=== PATIENT | male | born 1990 | race Hispanic/Latino ===

== ENCOUNTER 2019-01-25 18:11 | Emergency (ER) | payer BC ==
[2019-01-25] MEDS ORDERED: Sodium Chloride 0.9% 1,000 ML IV STA (18:45)
[2019-01-25 19:07] LABS: BASO # 0.1 K/uL (0.0-0.2); BASO % 0.9 % (0.0-2.0); EOS # 0.1 K/uL (0.0-0.7); EOS % 1.8 % (0.0-4.0); LYMPH # 2.2 K/uL (1.0-4.3); LYMPH % 30.2 % (20.0-40.0); MEAN CELL VOLUME 92.7 fl (80.0-94.0); MEAN CORPUSCULAR HEMOGLOBIN 31.7 pg (27.0-31.0); MEAN CORPUSCULAR HGB CONC 34.2 g/dL (33.0-37.0); MONO # 0.6 K/uL (0.0-0.8); MONO % 8.3 % (0.0-10.0); NEUT # 4.2 K/uL (1.8-7.0); NEUT % 58.8 % (50.0-75.0); NRBC % 0.2 % (0.0-0.0); RBC 5.03 Mil/uL (4.40-5.90); RED CELL DISTRIBUTION WIDTH 13.7 % (11.5-14.5); WHITE BLOOD COUNT 7.1 K/uL (4.8-10.8)
[2019-01-25] MEDS ORDERED: Morphine 4 MG/ML VIAL ONE ×2 (19:12→21:16)
[2019-01-25 19:13] LABS: ALB/GLOB RATIO 1.5 (1.0-2.1); ALBUMIN 4.5 g/dL (3.5-5.0); ALT/SGPT 50 U/L (21-72); AST/SGOT 52 U/L (17-59); BLOOD UREA NITROGEN 10 mg/dl (9-20); GFR NON-AFRICAN AMERICAN > 60
[2019-01-25] MEDS ORDERED: Morphine 4 MG/ML VIAL IV STA (19:23)
[2019-01-25] MEDS ORDERED: Sodium Chloride 0.9% 50 ML IV ONE (19:28)
[2019-01-25] MEDS ORDERED: Iohexol 300 100 ML IJ ONE (19:28)
--- NOTE | 2019-01-25 19:53 | ED PDOC ---
HPI: Abdomen Time Seen by Provider: 01/25/19 18:35 Chief Complaint (Nursing): Abdominal Pain Chief Complaint (Provider): RLQ pain History Per: Patient History/Exam Limitations: no limitations Onset/Duration Of Symptoms: Hrs Associated Symptoms: Nausea. denies: Vomiting Exacerbating Factors: denies: None Alleviating Factors: None Additional Complaint(s): 28 yo male wiht no medical problems presents for evaluation of RLQ pain since this morning. Pt also reports a milder pain in the RUQ. PT states he feels hot on and off with nausea. PT has no appetite. No similar in the past. PT was seen in urgent care and sent to ER for evaluation of appendicitis. Past Medical History Reviewed: Historical Data, Nursing Documentation, Vital Signs Vital Signs: Last Vital Signs Temp 98.5 F 01/25/19 18:20 Pulse 104 H 01/25/19 18:20 Resp 18 01/25/19 18:20 BP 148/94 H 01/25/19 18:20 Pulse Ox 98 01/25/19 18:20 Primary Care Provider: Dimas Palma - Medical History PMH: No Chronic Diseases - Surgical History Surgical History: No Surg Hx - Family History Family History: States: No Known Family Hx - Social History Current smoker - smoking cessation education provided: No - Allergies Allergies/Adverse Reactions: Allergies Allergy/AdvReac Type Severity Reaction Status Date / Time Penicillins Allergy SHORTNESS Verified 01/25/19 18:20 OF BREATH Review of Systems ROS Statement: Except As Marked, All Systems Reviewed And Found Negative Constitutional: Positive for: Fever (Subjective ) Cardiovascular: Negative for: Chest Pain, Palpitations Gastrointestinal: Positive for: Nausea, Abdominal Pain. Negative for: Vomiting, Diarrhea Genitourinary Male: Negative for: Dysuria Physical Exam - Reviewed Nursing Documentation Reviewed: Yes Vital Signs Reviewed: Yes - Physical Exam Appears: Positive for: Well, Non-toxic, No Acute Distress Head Exam: Positive for: ATRAUMATIC, NORMAL INSPECTION, NORMOCEPHALIC Skin: Positive for: Normal Color, Warm, DRY Eye Exam: Positive for: Normal appearance ENT: Positive for: Normal ENT Inspection Neck: Positive for: Normal, Painless ROM Cardiovascular/Chest: Positive for: Regular Rate, Rhythm Respiratory: Positive for: Normal Breath Sounds. Negative for: Accessory Muscle Use, Respiratory Distress Gastrointestinal/Abdominal: Positive for: Soft, Tenderness (RLQ). Negative for: Normal Exam Back: Positive for: Normal Inspection Extremity: Positive for: Normal ROM Neurological/Psych: Positive for: Awake, Alert, Normal Tone - Laboratory Results Result Diagrams: 01/25/19 18:50 01/25/19 18:50 Lab Results: Total Bilirubin 0.3 mg/dl (0.2-1.3) 01/25/19 18:50 AST 52 U/L (17-59) 01/25/19 18:50 ALT 50 U/L (21-72) 01/25/19 18:50 Alkaline Phosphatase 66 U/L (38-126) 01/25/19 18:50 Total Protein 7.5 G/DL (6.3-8.2) 01/25/19 18:50 Albumin 4.5 g/dL (3.5-5.0) 01/25/19 18:50 Globulin 3.0 gm/dL (2.2-3.9) 01/25/19 18:50 Albumin/Globulin Ratio 1.5 (1.0-2.1) 01/25/19 18:50 - ECG O2 Sat by Pulse Oximetry: 98 Medical Decision Making Medical Decision Making: Pt reports feeling better after IV morphine and zofran. PT endorsed pending CT scan and re-evaluation. Disposition - Clinical Impression Clinical Impression: Abdominal pain - Disposition Referrals: Non [facility] Provider, [Primary Care Provider] - Disposition: Transfer of Care Disposition Time: 19:54 Condition: STABLE
--- NOTE | 2019-01-25 20:33 | ED PDOC ---
- Laboratory Results Result Diagrams: 01/25/19 18:50 01/25/19 18:50 Lab Results: Total Bilirubin 0.3 mg/dl (0.2-1.3) 01/25/19 18:50 AST 52 U/L (17-59) 01/25/19 18:50 ALT 50 U/L (21-72) 01/25/19 18:50 Alkaline Phosphatase 66 U/L (38-126) 01/25/19 18:50 Total Protein 7.5 G/DL (6.3-8.2) 01/25/19 18:50 Albumin 4.5 g/dL (3.5-5.0) 01/25/19 18:50 Globulin 3.0 gm/dL (2.2-3.9) 01/25/19 18:50 Albumin/Globulin Ratio 1.5 (1.0-2.1) 01/25/19 18:50 - ECG O2 Sat by Pulse Oximetry: 98 <Joao Dc - Last Filed: 01/26/19 01:32> - Laboratory Results Result Diagrams: 01/25/19 18:50 01/25/19 18:50 Lab Results: Total Bilirubin 0.3 mg/dl (0.2-1.3) 01/25/19 18:50 AST 52 U/L (17-59) 01/25/19 18:50 ALT 50 U/L (21-72) 01/25/19 18:50 Alkaline Phosphatase 66 U/L (38-126) 01/25/19 18:50 Total Protein 7.5 G/DL (6.3-8.2) 01/25/19 18:50 Albumin 4.5 g/dL (3.5-5.0) 01/25/19 18:50 Globulin 3.0 gm/dL (2.2-3.9) 01/25/19 18:50 Albumin/Globulin Ratio 1.5 (1.0-2.1) 01/25/19 18:50 <Ondina Warner - Last Filed: 01/26/19 16:15> Medical Decision Making Medical Decision Makin case endorsed to me by Thania PAC pending CT results, r/o appendicitis 2104 CT results EXAM: CT Abdomen and Pelvis with IV contrast CLINICAL HISTORY: RLQ PAIN TECHNIQUE: Axial computed tomography images of the abdomen and pelvis with intravenous contrast. 814.74 mGy-cm CONTRAST: With; [id number] 95ML COMPARISON: None provided. FINDINGS: LUNG BASES: The lung bases appear clear. No pleural effusions are seen. LIVER: Unremarkable. GALLBLADDER AND BILE DUCTS: The gallbladder appears within normal limits. No radioopaque gallstones are seen. No biliary ductal dilatation is evident. PANCREAS: Unremarkable. SPLEEN: Unremarkable. ADRENAL GLANDS: Unremarkable. KIDNEYS, URETERS, AND BLADDER: The kidneys appear within normal limits. There is no hydronephrosis or hydroureter. No urinary calculi are seen. The urinary bladder appeared normal in size and configuration. STOMACH AND BOWEL: Unremarkable appearance of the stomach. No evidence of bowel obstruction. There is mild mucosal wall thickening of the ileal small intestinal tract which con tains fluid in its lumen compatible with ileitis. Thick walled fluid filled colon is noted with involvement of all segments compatible with pancolitis. Infectious and inflammatory etiologies are con sidered. Infectious or inflammatory etiologies are thought most likely. APPENDIX: No evidence of acute appendicitis on CT examination. PERITONEUM: No free fluid. No free air. LYMPH NODES: No lymphadenopathy is evident. REPRODUCTIVE: Unremarkable as visualized. VASCULATURE: No evidence of abdominal aortic aneurysm. BONES: No aggressive appearing osseous lesion. No acute osseous pathology evident. IMPRESSION: 1. Evidence of ileitis and colitis. Electronically signed on January 25, 2019 8:42:39 PM EDT by: Robbie Parra M.D., M.B.A., Certified By [employer] Trained MRI and CT Specialist 21:15 on re eval pt reports his pain only improved slightly, he says standing improves pain, when laying down he has RUQ pain and slight nausea feeling in his throat Pt reports pain starting at 12:30 today associated with nausea, he notes the last two days feeling bloated and constipated, he had normal bowel movements today, no diarrhea, no recent travel or antibiotic use, no h/o abdominal surgeries will treat with Toradol IV and Pepcid IV and re eval 21:40 pt was previously ordered to get 4 morphine IV by Thania GRANADOS, but never recieved it since he was in [place] as per RN, so he just received it, will cancel Toradol IV 22:50 on re eval pt is feeling much better, pain free at this time, abdomen is soft and non tender, VSS, labs unremarkable, pt with colitis and ileitis - infectious vs inflammatory, will treat with antibiotics, f/u with PMD/GI doctor Discussed results, diagnosis, treatment, return precautions and f/u with pt who is understanding, in agreement and stable for dc <Lucrecia Joao Ordoñez - Last Filed: 01/26/19 01:32> Disposition Counseled Patient/Family Regarding: Studies Performed, Diagnosis, Need For Followup, Rx Given - POA Present On Arrival: None - Disposition Disposition: Routine/Home Disposition Time: 22:55 <Joao Dc - Last Filed: 01/26/19 01:32> <Ondina Warner - Last Filed: 01/26/19 16:15> - Clinical Impression Clinical Impression: Pancolitis, Ileitis - Disposition Referrals: [facility] [Provider Group] Wilfredo Au MD, PhD [Staff Provider] - Condition: IMPROVED Additional Instructions: The emergency medical care you received today was directed at your acute symptoms. If you were prescribed any medication, please fill it and take as directed. It may take several days for your symptoms to resolve. Return to the Emergency Department if your symptoms worsen, do not improve, or if you have any other problems. Please contact your doctor in 2 days for re-evaluation and follow up / or call one of the physicians/clinics you have been referred to that are listed on the Patient Visit Information form that is included in your discharge packet. Bring any paperwork you were given at discharge with you along with any medications you are taking to your follow up visit. Our treatment cannot replace ongoing medical care by a primary care provider (PCP) outside of the emergency department. Prescriptions: Ciprofloxacin HCl [Cipro] 500 mg PO BID 7 Days #14 tablet Metronidazole [Flagyl] 500 mg PO TID 7 Days #21 tablet Ondansetron ODT [Zofran ODT] 4 mg PO TID PRN #12 odt PRN Reason: Nausea/Vomiting Instructions: Acute Abdomen (Belly Pain), Adult (DC), Inflammatory Bowel Disease (DC) Forms: [employer] (Maldivian) Print Language: PERSIAN Addendum Addendum: 01/26/19 15:30 Patient called to notify of official CT scan read: Probable early AP and follow- up. No answer left message to call back with contact information. Due to the read and emergency of probable AP patient's emergency contact listed also called, patient's father was contacted for assistance to getting in contact with patient. He states he spoke to patient at 11am today and reported he felt better. Father encouraged to reach and have patient call back. 15:58: Patient called back. Patient states pain has improved but continues to feel "bloated and distended" with pressure like discomfort. Patient advised of CT reports and advised to return to ED for further re-evaluation. Patient states he will return to ED shortly. Dr. Valenzuela aware of case and notified patient will return. <Ondina Warner - Last Filed: 01/26/19 16:15>
[2019-01-25 22:32] VITALS: BP 123/69; PULSE 81; RESP 16; TEMP 97.7
[2019-01-26 01:33] VITALS: O2SAT 98
--- NOTE | 2019-01-26 14:04 | CT ---
Date of service: 01/25/2019 PROCEDURE: CT abdomen and pelvis HISTORY: Right lower quadrant pain COMPARISON: None. TECHNIQUE: Contiguous axial images of the abdomen and pelvis. Oral contrast was administered. No IV contrast given. Coronal and Sagittal reformats generated. Radiation dose: Total exam DLP = 812.74 mGy-cm. This CT exam was performed using one or more of the following dose reduction techniques: Automated exposure control, adjustment of the mA and/or kV according to patient size, and/or use of iterative reconstruction technique. FINDINGS: LOWER THORAX: Unremarkable. LIVER: Liver exhibits normal size. Mild diffuse fatty hepatic infiltration. There is a vague area of low attenuation anterior aspect left lobe liver bordering the fissure that could represent more localized fatty infiltration though the possibility of a small cyst or hemangioma not completely excluded. The portal and splenic veins are opacified. GALLBLADDER AND BILE DUCTS: Unremarkable. PANCREAS: Unremarkable. No mass. No ductal dilatation. SPLEEN: Unremarkable. No splenomegaly. ADRENALS: Unremarkable. KIDNEYS AND URETERS: Unremarkable. No stone or hydronephrosis. BLADDER: Urinary bladder is distended with no evidence of urinary bladder wall thickening or intraluminal calculi REPRODUCTIVE: Unremarkable as visualized. APPENDIX: The appendix is retrocecal in location and measures up to nearly 8.3 mm with slight thick-walled appearance. The possibility of a developing early acute appendicitis must be considered. Clinical correlation recommended. Note this report placed in PA review folder for follow up. BOWEL: Evaluation of the bowel is limited due to the lack of oral contrast material. Stomach is incompletely distended with slight thick-walled appearance. Visualized loops of small bowel exhibit normal contour and caliber. No evidence of acute mechanical small bowel obstruction. Ascending and transverse colon. Most the remaining colon is collapsed. PERITONEUM: Unremarkable. No fluid collection. No free air. LYMPH NODES: Unremarkable. No enlarged lymph nodes. VASCULATURE: Unremarkable. No aortic aneurysm. No aortic atherosclerotic calcification or mural plaque present. BONES: No fracture or destructive lesion. OTHER FINDINGS: None. IMPRESSION: Possible early acute appendicitis. Clinical correlation with history, physical exam and laboratory values recommended. Small to medium size hiatal hernia. Fatty infiltration. Probable localize fat left lobe liver bordering the fissure. Note that the report was placed in PA review folder for follow up. Study also discussed with emergency room SAMANTHA Smart
== END 2019-01-25 22:56 | disposition home or self-care (01) ==
LOC: SUPCPDRO 18:11 → H.ER 18:11
DX: R10.9 Unspecified abdominal pain (principal); K52.9 Noninfective gastroenteritis and colitis, unspecified; Z88.0 Allergy status to penicillin
CPT/HCPCS: 74177; 80053; 85025; 87040; 96361; 96374; 96375; 96376; 99283; J2270; J2405; J7030; Q9967

== ENCOUNTER 2019-01-26 16:22 | Emergency (ER) | payer BC ==
[2019-01-26 16:35] VITALS: BP 149/95; PULSE 101; RESP 16; TEMP 98.8; O2SAT 99
--- NOTE | 2019-01-26 16:56 | ED PDOC ---
HPI: Abdomen Time Seen by Provider: 01/26/19 16:55 Chief Complaint (Nursing): Abdominal Pain Chief Complaint (Provider): abdominal pain History Per: Patient (28 y/o male here with ongoing rlq abd pain called back to ED for re-evaluation after CT rereading of possible early appendicitis. No fevers/chills at home. Notes decreased appetite.) Against Medical Advice - AMA Patient Left Against Medical Advice: The patient declines admission to the hospital and wishes to leave the Emergency Department. This action is against my medical advice. This decision was made with informed refusal. The patient was told that admission to the hospital is necessary. Explanation of the reasons why were discussed. The risks of leaving were explained to the patient and include, but are not limited to, worsening of known or currently unknown conditions, permanent disability and from undiagnosed or untreated conditions. The patient has the capacity to make this informed decision and understands my explanation of the current medical problem and risks of leaving. The patient voluntarily accepts these risks and signed an AMA form documenting our conversation. The patient was given the opportunity to ask questions and reconsider. The patient was encouraged to return to the Emergency Department at any time for further care. Past Medical History Reviewed: Historical Data, Nursing Documentation, Vital Signs Vital Signs: Last Vital Signs Temp 98.8 F 01/26/19 16:25 Pulse 101 H 01/26/19 16:25 Resp 16 01/26/19 16:25 BP 149/95 H 01/26/19 16:25 Pulse Ox 99 01/26/19 16:25 Primary Care Provider: Dimas Palam - Family History Family History: States: No Known Family Hx - Home Medications Home Medications: Ambulatory Orders Medication Instructions Recorded Ciprofloxacin HCl [Cipro] 500 mg PO BID 7 Days #14 tablet 01/25/19 Metronidazole [Flagyl] 500 mg PO TID 7 Days #21 tablet 01/25/19 Ondansetron ODT [Zofran ODT] 4 mg PO TID PRN #12 odt 01/25/19 - Allergies Allergies/Adverse Reactions: Allergies Allergy/AdvReac Type Severity Reaction Status Date / Time Penicillins Allergy SHORTNESS Verified 01/26/19 16:32 OF BREATH Review of Systems ROS Statement: Except As Marked, All Systems Reviewed And Found Negative Gastrointestinal: Positive for: Abdominal Pain Physical Exam - Reviewed Nursing Documentation Reviewed: Yes Vital Signs Reviewed: Yes - Physical Exam Appears: Positive for: Well, Non-toxic, No Acute Distress Head Exam: Positive for: ATRAUMATIC, NORMAL INSPECTION, NORMOCEPHALIC Skin: Positive for: Normal Color, Warm, DRY Eye Exam: Positive for: EOMI, Normal appearance, PERRL ENT: Positive for: Normal ENT Inspection Neck: Positive for: Normal, Painless ROM Cardiovascular/Chest: Positive for: Regular Rate, Rhythm Respiratory: Positive for: CNT, Normal Breath Sounds Gastrointestinal/Abdominal: Positive for: Normal Exam, Soft, Tenderness (mild rlq tenderness) Back: Positive for: Normal Inspection Extremity: Positive for: Normal ROM Neurological/Psych: Positive for: Awake, Alert, Normal Tone - Laboratory Results Result Diagrams: 01/26/19 16:59 01/26/19 16:59 - ECG O2 Sat by Pulse Oximetry: 99 - Progress ED Course And Treament: d/w Dr. Bartholomew. d/w care program resident. Seen by him in ED. Recommends repeat CT abd/pelvis with po and iv contrast. Patient would like to leave ED as he does not want to wait for CT in ED without his cellphone. Disposition - Clinical Impression Clinical Impression: Abdominal pain - Patient ED Disposition Is Patient to be Admitted: No - Disposition Disposition: Against Medical Advice Disposition Time: 18:50 Condition: FAIR
[2019-01-26 17:08] LABS: BASO # 0.1 K/uL (0.0-0.2); BASO % 1.1 % (0.0-2.0); EOS # 0.1 K/uL (0.0-0.7); EOS % 1.8 % (0.0-4.0); HEMOGLOBIN 14.8 g/dL (12.0-18.0); LYMPH # 1.4 K/uL (1.0-4.3); LYMPH % 29.9 % (20.0-40.0); MEAN CELL VOLUME 92.9 fl (80.0-94.0); MEAN CORPUSCULAR HEMOGLOBIN 31.6 pg (27.0-31.0); MEAN PLATELET VOLUME 8.2 fl (7.2-11.7); MONO # 0.6 K/uL (0.0-0.8); MONO % 12.2 % (0.0-10.0); NEUT # 2.6 K/uL (1.8-7.0); NRBC % 0.1 % (0.0-0.0); RBC 4.67 Mil/uL (4.40-5.90); RED CELL DISTRIBUTION WIDTH 13.6 % (11.5-14.5); WHITE BLOOD COUNT 4.8 K/uL (4.8-10.8)
[2019-01-26 17:12] LABS: INR 0.9; PROTHROMBIN TIME 10.2 Seconds (9.8-13.1)
[2019-01-26 17:15] LABS: PARTIAL THROMBOPLASTIN TIME 33.3 Seconds (25.6-37.1)
[2019-01-26 17:32] LABS: ALB/GLOB RATIO 1.5 (1.0-2.1); ALT/SGPT 47 U/L (21-72); AST/SGOT 40 U/L (17-59); BLOOD UREA NITROGEN 10 mg/dl (9-20); CALCIUM 9.3 mg/dL (8.4-10.2); GFR NON-AFRICAN AMERICAN > 60; LIPASE 77 U/L (23-300)
--- NOTE | 2019-01-26 18:26 | CP.PCM.CON ---
History of Present Illness - History of Present Illness History of Present Illness: General Surgery Consult for Dr. Bartholomew Reason for consult: RLQ, concerning for early appendicitis as per CT from 01/25 28 M with no significant PMH presents for evaluation of RLQ pain. Patient was seen and evaluated in the ED. Patient came to ED yesterday on 01/[address] abd/pelvis done. [place] rad read stated no evidence of acute appendicitis (see full report). In house radiologist read the study today 01/26 and determiend that it was suspicious for early appendicitis so patient was called in to be evaluated again. Patient still reports RLQ pain. Patient never had a similar pain in the past. Admits to intermittent nausea and anorexia. Denies fever/chills, cp, SOB, vomiting, diarrhea, urinary symptoms. PMH: denies PSH: denies ALL: NKDA Review of Systems - Review of Systems All systems: reviewed and no additional remarkable complaints except (as per HP I) Past Patient History - Infectious Disease Hx of Infectious Diseases: None - Past Social History Smoking Status: Never Smoked - PSYCHIATRIC Hx Substance Use: No - SURGICAL HISTORY Hx Surgeries: No Meds Allergies/Adverse Reactions: Allergies Allergy/AdvReac Type Severity Reaction Status Date / Time Penicillins Allergy SHORTNESS Verified 01/26/19 16:32 OF BREATH Physical Exam - Constitutional Appears: Well, Non-toxic, No Acute Distress - Head Exam Head Exam: ATRAUMATIC, NORMOCEPHALIC - Eye Exam Eye Exam: EOMI, Normal appearance Pupil Exam: PERRL - ENT Exam ENT Exam: Mucous Membranes Moist - Respiratory Exam Respiratory Exam: NORMAL BREATHING PATTERN - Cardiovascular Exam Cardiovascular Exam: REGULAR RHYTHM - GI/Abdominal Exam GI & Abdominal Exam: Normal Bowel Sounds, Soft, Tenderness (RLQ). absent: Distended, Firm, Guarding, Hernia, Rebound, Rigid - Rectal Exam Rectal Exam: Deferred - Extremities Exam Extremities exam: Positive for: normal capillary refill, pedal pulses present. Negative for: calf tenderness - Back Exam Back exam: absent: CVA tenderness (L), CVA tenderness (R) - Neurological Exam Neurological exam: Alert, CN II-XII Intact, Normal Gait, Oriented x3, Reflexes Normal - Psychiatric Exam Psychiatric exam: Normal Affect, Normal Mood - Skin Skin Exam: Dry, Intact, Normal Color, Warm Results - Vital Signs Recent Vital Signs: Last Vital Signs Temp 98.8 F 01/26/19 16:25 Pulse 101 H 01/26/19 16:25 Resp 16 01/26/19 16:25 BP 149/95 H 01/26/19 16:25 Pulse Ox 99 01/26/19 16:56 - Labs Result Diagrams: 01/26/19 16:59 01/26/19 16:59 Labs: Laboratory Results - last 24 hr 01/26/19 01/26/19 01/26/19 16:59 16:59 16:59 WBC 4.8 RBC 4.67 Hgb 14.8 Hct 43.4 MCV 92.9 MCH 31.6 H MCHC 34.0 RDW 13.6 Plt Count 223 MPV 8.2 Neut % (Auto) 55.0 Lymph % (Auto) 29.9 [place] % (Auto) 12.2 H Eos % (Auto) 1.8 Baso % (Auto) 1.1 Neut # (Auto) 2.6 Lymph # (Auto) 1.4 [place] # (Auto) 0.6 Eos # (Auto) 0.1 Baso # (Auto) 0.1 PT 10.2 INR 0.9 APTT 33.3 Sodium 143 Potassium 3.7 Chloride 106 Carbon Dioxide 25 Anion Gap 16 BUN 10 Creatinine 0.7 L Est GFR ( Amer) > 60 Est GFR (Non-Af Amer) > 60 Random Glucose 83 Calcium 9.3 Total Bilirubin 0.2 AST 40 ALT 47 Alkaline Phosphatase 55 Total Protein 6.7 Albumin 4.0 Globulin 2.7 Albumin/Globulin Ratio 1.5 Lipase 77 Blood Type Antibody Screen BBK History Checked 01/26/19 16:59 WBC RBC Hgb Hct MCV MCH MCHC RDW Plt Count MPV Neut % (Auto) Lymph % (Auto) [place] % (Auto) Eos % (Auto) Baso % (Auto) Neut # (Auto) Lymph # (Auto) [place] # (Auto) Eos # (Auto) Baso # (Auto) PT INR APTT Sodium Potassium Chloride Carbon Dioxide Anion Gap BUN Creatinine Est GFR ( Amer) Est GFR (Non-Af Amer) Random Glucose Calcium Total Bilirubin AST ALT Alkaline Phosphatase Total Protein Albumin Globulin Albumin/Globulin Ratio Lipase Blood Type A POSITIVE Antibody Screen Negative BBK History Checked No verified bt Assessment & Plan - Assessment and Plan (Free Text) Assessment: 28 M with RLQ pain called back in for possible early appendicitis Plan: -Repeat CT abd/pelvis with PO and IV contrast -Pain control -Anti-emetics PRN -IV fluids -Discussed with Dr. Puma Fowler PGY2 - Date & Time Date: 01/26/19 Time: 18:25
== END 2019-01-26 18:36 | disposition left against medical advice (07) ==
LOC: H.ER 16:22
DX: R10.31 Right lower quadrant pain (principal); Z88.0 Allergy status to penicillin

== ENCOUNTER 2019-01-26 19:25 | Emergency (ER) | payer BC ==
[2019-01-26] MEDS ORDERED: Iohexol 240 (50 ml) PO ONE (19:49)
[2019-01-26] MEDS ORDERED: Sodium Chloride 0.9% 1,000 ML IV STA (19:50)
--- NOTE | 2019-01-26 19:55 | ED PDOC ---
HPI: Abdomen Time Seen by Provider: 01/26/19 19:51 Chief Complaint (Nursing): Abdominal Pain Chief Complaint (Provider): abdominal pain History Per: Patient (28 y/o male here with abdominal pain rlq x 2 days. Seen yesterday with CT reading demonstrating ileulitis. Was called back to ED for review of CT and reading of 'possible early appendicitis.' Patient noted persistent abd pain. Seen by surg resident earlier today and advised repeat ct with iv/po contrast. Patient decided to sign out AMA to go and obtain phone prior to getting CT scan.) Past Medical History Reviewed: Historical Data, Nursing Documentation, Vital Signs Vital Signs: Last Vital Signs Temp 98.0 F 01/26/19 19:42 Pulse 88 01/26/19 19:42 Resp 16 01/26/19 19:42 BP 143/94 H 01/26/19 19:42 Pulse Ox 98 01/26/19 19:42 Primary Care Provider: Dimas Palma - Family History Family History: States: No Known Family Hx - Home Medications Home Medications: Ambulatory Orders Medication Instructions Recorded Ciprofloxacin HCl [Cipro] 500 mg PO BID 7 Days #14 tablet 01/25/19 Metronidazole [Flagyl] 500 mg PO TID 7 Days #21 tablet 01/25/19 Ondansetron ODT [Zofran ODT] 4 mg PO TID PRN #12 odt 01/25/19 - Allergies Allergies/Adverse Reactions: Allergies Allergy/AdvReac Type Severity Reaction Status Date / Time Penicillins Allergy SHORTNESS Verified 01/26/19 16:32 OF BREATH Review of Systems ROS Statement: Except As Marked, All Systems Reviewed And Found Negative Physical Exam - Reviewed Nursing Documentation Reviewed: Yes Vital Signs Reviewed: Yes - Physical Exam Appears: Positive for: Well, Non-toxic, No Acute Distress Head Exam: Positive for: ATRAUMATIC, NORMAL INSPECTION, NORMOCEPHALIC Skin: Positive for: Normal Color, Warm, DRY Eye Exam: Positive for: EOMI, Normal appearance, PERRL ENT: Positive for: Normal ENT Inspection Neck: Positive for: Normal, Painless ROM Cardiovascular/Chest: Positive for: Regular Rate, Rhythm Respiratory: Positive for: CNT, Normal Breath Sounds Gastrointestinal/Abdominal: Positive for: Normal Exam, Soft Back: Positive for: Normal Inspection Extremity: Positive for: Normal ROM Neurological/Psych: Positive for: Awake, Alert, Normal Tone - ECG O2 Sat by Pulse Oximetry: 98 Disposition - Clinical Impression Clinical Impression: Abdominal discomfort - Patient ED Disposition Is Patient to be Admitted: Transfer of Care - Disposition Disposition: Transfer of Care Disposition Time: 20:00 Condition: FAIR Instructions: Acute Abdomen (Belly Pain), Adult (DC) Patient Signed Over To: Joao Dc Handoff Comments: pending CT. pending discussion with surg res
[2019-01-26] MEDS ORDERED: Iohexol 240 (50 ml) ONE (19:58)
[2019-01-26] MEDS ORDERED: Sodium Chloride 0.9% 50 ML IV ONE (22:13)
[2019-01-26] MEDS ORDERED: Iohexol 300 100 ML IJ ONE (22:13)
[2019-01-26] MEDS ORDERED: Morphine 4 MG/ML VIAL IVP STA (22:45)
[2019-01-26] MEDS ORDERED: Morphine 4 MG/ML VIAL ONE (22:51)
[2019-01-26 23:13] LABS: SQUAMOUS EPITHIAL < 1 /hpf (0-5); URINE BILIRUBIN NEGATIVE (NEGATIVE); URINE BLOOD NEGATIVE (NEGATIVE); URINE CLARITY CLEAR (Clear); URINE COLOR YELLOW (YELLOW); URINE GLUCOSE (UA) NEG (NEGATIVE); URINE LEUKOCYTE ESTERASE NEG Leu/uL (Negative); URINE PROTEIN NEGATIVE (NEGATIVE); URINE UROBILINOGEN 0.2-1.0 mg/dL (0.2-1.0)
--- NOTE | 2019-01-26 23:59 | ED PDOC ---
- Laboratory Results Lab Results: Urine Color Yellow (YELLOW) 01/26/19 23:04 Urine Clarity Clear (Clear) 01/26/19 23:04 Urine pH 6.0 (5.0-8.0) 01/26/19 23:04 Ur Specific [place] > 1.060 (1.003-1.030) H 01/26/19 23:04 Urine Protein Negative mg/dL (NEGATIVE) 01/26/19 23:04 Urine Glucose (UA) Neg mg/dL (NEGATIVE) 01/26/19 23:04 Urine Ketones Negative mg/dL (NEGATIVE) 01/26/19 23:04 Urine Blood Negative (NEGATIVE) 01/26/19 23:04 Urine Nitrate Negative (NEGATIVE) 01/26/19 23:04 Urine Bilirubin Negative (NEGATIVE) 01/26/19 23:04 Urine Urobilinogen 0.2-1.0 mg/dL (0.2-1.0) 01/26/19 23:04 Ur Leukocyte Esterase Neg Maryjane/uL (Negative) 01/26/19 23:04 Urine RBC (Auto) 1 /hpf (0-3) 01/26/19 23:04 Urine Microscopic WBC < 1 /hpf (0-5) 01/26/19 23:04 Ur Squamous Epith Cells < 1 /hpf (0-5) 01/26/19 23:04 - ECG O2 Sat by Pulse Oximetry: 98 Medical Decision Making Medical Decision Makin case endorsed to me by Henrique PAC, pending CT results 22:00 pt seen by me, reports he felt better last night into this morning, then pain came back, more so RUQ, was called back, came back to ER, then signed out AMA, came back to get repeat CT as per surgery recommendation, pt reports the Toradol did not help his pain, currently has RUQ and RLQ pain abdomen is soft, mild-moderate RUQ and RLQ tendernss, no rebound nor guarding IV morphine ordered 2330 EXAM: CT Abdomen and Pelvis with IV and oral contrast agent. CLINICAL HISTORY: R/o appenxicitis TECHNIQUE: Axial computed tomography images of the abdomen and pelvis with intravenous contrast. 865.20 mGy-cm CONTRAST: With; [id number] COMPARISON: Comparison is made to examination dated 01/25/2019. FINDINGS: LUNG BASES: The lung bases appear clear. No pleural effusions are seen. LIVER: Unremarkable. GALLBLADDER AND BILE DUCTS: The gallbladder appears within normal limits. No radioopaque gallstones are seen. No biliary ductal dilatation is evident. PANCREAS: Unremarkable. SPLEEN: Unremarkable. ADRENAL GLANDS: Unremarkable. KIDNEYS, URETERS, AND BLADDER: The kidneys appear within normal limits. There is no hydronephrosis or hydroureter. No urinary calculi are seen. The urinary bladder appears normal in size and configuration. STOMACH AND BOWEL: Unremarkable appearance of the stomach and bowel. No evidence of bowel obstruction. The previously identified ileitis and pancolitis appear to have resolved. APPENDIX: A normal-appearing vermiform retrocecal appendix is noted. No evidence of acute appendicitis on CT examination. PERITONEUM: No free fluid. No free air. LYMPH NODES: No lymphadenopathy is evident. REPRODUCTIVE: Unremarkable as visualized. VASCULATURE: No evidence of abdominal aortic aneurysm. BONES: No aggressive appearing osseous lesion. No acute osseous pathology evident. IMPRESSION: 1. No acute intra-abdominal or pelvic abnormality. 2. Previously identified ileitis and pancolitis appear to have resolved. [id number] spoke to senior net application developer surgical aide, who looked at CT says appendix is normal, sees stool in colon, nothing for them to do 00:05 on re eval pt reports feeling better, abdomen is soft and non tender, labs wnl Discussed results, diagnosis, treatment, return precautions and f/u with pt who is understanding, in agreemetn and stable for dc Disposition Counseled Patient/Family Regarding: Studies Performed, Diagnosis, Need For Followup, Rx Given - Clinical Impression Clinical Impression: Abdominal pain, Constipation - POA Present On Arrival: None - Disposition Referrals: your, doctor [Other] Disposition: Routine/Home Disposition Time: 00:14 Condition: IMPROVED Additional Instructions: Thank you for letting us take care of you today. Take medications as prescribed. Drink plenty of water and high fiber diet. The emergency medical care you received today was directed at your acute symptoms. If you were prescribed any medication, please fill it and take as directed. It may take several days for your symptoms to resolve. Return to the Emergency Department if your symptoms worsen, do not improve, or if you have any other problems. Please contact your doctor in 2 days for re-evaluation and follow up / or call one of the physicians/clinics you have been referred to that are listed on the Patient Visit Information form that is included in your discharge packet. Bring any paperwork you were given at discharge with you along with any medications you are taking to your follow up visit. Our treatment cannot replace ongoing medical care by a primary care provider (PCP) outside of the emergency department. Prescriptions: Magnesium Citrate [Citrate of Mag] 300 ml PO DAILY #1 bottle Instructions: Constipation, Adult (DC), Acute Abdomen (Belly Pain), Adult (DC) Forms: [facility] (Hungarian) Print Language: SAMI
[2019-01-27 02:43] VITALS: BP 145/101; PULSE 86; RESP 18; TEMP 97.8
[2019-01-27 04:06] VITALS: O2SAT 98
--- NOTE | 2019-01-27 08:08 | CP.PCM.CON ---
History of Present Illness - History of Present Illness History of Present Illness: General Surgery Consult for Dr. Bartholomew Reason for consult: RLQ, concerning for early appendicitis as per CT from 01/25 28 M with no significant PMH presents for evaluation of RLQ pain. Patient was seen and evaluated in the ED. Patient came to ED yesterday on 01/[address] abd/pelvis done. [place] rad read stated no evidence of acute appendicitis (see full report). In house radiologist read the study today 01/26 and determiend that it was suspicious for early appendicitis so patient was called in to be evaluated again. Patient still reports RLQ pain. Patient never had a similar pain in the past. Admits to intermittent nausea and anorexia. Denies fever/chills, cp, SOB, vomiting, diarrhea, urinary symptoms. Patient signed out AMA because he had to run home and returned for repeat CT abd/pelvis. PMH: denies PSH: denies ALL: NKDA Review of Systems - Review of Systems All systems: reviewed and no additional remarkable complaints except (as per HPI) Past Patient History - Infectious Disease Hx of Infectious Diseases: None - Past Social History Smoking Status: Never Smoked - PSYCHIATRIC Hx Substance Use: No - SURGICAL HISTORY Hx Surgeries: No Meds Home Medications: Home Medication List Medication Instructions Recorded Confirmed Type Magnesium Citrate [Citrate of Mag] 300 ml PO DAILY #1 bottle 01/27/19 Rx Allergies/Adverse Reactions: Allergies Allergy/AdvReac Type Severity Reaction Status Date / Time Penicillins Allergy SHORTNESS Verified 01/26/19 16:32 OF BREATH Physical Exam - Additional Findings Additional findings: - Constitutional Appears: Well, Non-toxic, No Acute Distress - Head Exam Head Exam: ATRAUMATIC, NORMOCEPHALIC - Eye Exam Eye Exam: EOMI, Normal appearance Pupil Exam: PERRL - ENT Exam ENT Exam: Mucous Membranes Moist - Respiratory Exam Respiratory Exam: NORMAL BREATHING PATTERN - Cardiovascular Exam Cardiovascular Exam: REGULAR RHYTHM - GI/Abdominal Exam GI & Abdominal Exam: Normal Bowel Sounds, Soft, Tenderness (RLQ). absent: Distended, Firm, Guarding, Hernia, Rebound, Rigid - Rectal Exam Rectal Exam: Deferred - Extremities Exam Extremities exam: Positive for: normal capillary refill, pedal pulses present. Negative for: calf tenderness - Back Exam Back exam: absent: CVA tenderness (L), CVA tenderness (R) - Neurological Exam Neurological exam: Alert, CN II-XII Intact, Normal Gait, Oriented x3, Reflexes Normal - Psychiatric Exam Psychiatric exam: Normal Affect, Normal Mood - Skin Skin Exam: Dry, Intact, Normal Color, Warm Results - Vital Signs Recent Vital Signs: Last Vital Signs Temp 97.8 F 01/27/19 00:27 Pulse 86 01/27/19 00:27 Resp 18 01/27/19 00:27 BP 145/101 H 01/27/19 00:27 Pulse Ox 98 01/27/19 04:05 - Labs Labs: Laboratory Results - last 24 hr 01/26/19 23:04 Urine Color Yellow Urine Clarity Clear Urine pH 6.0 Ur Specific [place] > 1.060 H Urine Protein Negative Urine Glucose (UA) Neg Urine Ketones Negative Urine Blood Negative Urine Nitrate Negative Urine Bilirubin Negative Urine Urobilinogen 0.2-1.0 Ur Leukocyte Esterase Neg Urine RBC (Auto) 1 Urine Microscopic WBC < 1 Ur Squamous Epith Cells < 1 Assessment & Plan - Assessment and Plan (Free Text) Assessment: 28 M with RLQ pain called back in for possible early appendicitis Plan: -Repeat CT abd/pelvis with PO and IV contrast showed normal appendix as per [place] rad read -No surgical intervention indicated at this time -Discussed with Dr. Puma Fowler PGY2 - Date & Time Date: 01/26/19 Time: 21:00
--- NOTE | 2019-01-27 15:47 | CT ---
Date of service: 01/26/2019 PROCEDURE: CT Abdomen and Pelvis with contrast HISTORY: Rule out appendicitis comparison made with prior CT scan abdomen pelvis 01/25/2019 COMPARISON: TECHNIQUE: Contrast dose: Radiation dose: Total exam DLP = 865.2 mGy-cm. This CT exam was performed using one or more of the following dose reduction techniques: Automated exposure control, adjustment of the mA and/or kV according to patient size, and/or use of iterative reconstruction technique. FINDINGS: LOWER THORAX: Unremarkable. LIVER: Mild fatty hepatic infiltration. No gross lesion or ductal dilatation. GALLBLADDER AND BILE DUCTS: Unremarkable. PANCREAS: Unremarkable. No gross lesion or ductal dilatation. SPLEEN: Unremarkable. ADRENALS: Unremarkable. No mass. KIDNEYS AND URETERS: Unremarkable. No hydronephrosis. No solid mass. VASCULATURE: Unremarkable. No aortic aneurysm. No aortic atherosclerotic calcification or mural plaque present. BOWEL: Unremarkable. No obstruction. No gross mural thickening. APPENDIX: The appendix exhibits relatively normal caliber with no significant wall thickening. PERITONEUM: Unremarkable. No free fluid. No free air. LYMPH NODES: Unremarkable. No enlarged lymph nodes. BLADDER: Unremarkable. REPRODUCTIVE: Unremarkable. BONES: No acute fracture. OTHER FINDINGS: None. IMPRESSION: No evidence of acute appendicitis.. Fatty hepatic infiltration
== END 2019-01-27 00:27 | disposition home or self-care (01) ==
LOC: H.ER 19:25
DX: K59.00 Constipation, unspecified (principal); R10.31 Right lower quadrant pain
CPT/HCPCS: 74177; 81003; 96361; 96374; 96375; 99283; J1885; J2270; J7030; Q9966; Q9967